=== PATIENT | female | born 1995 | race African-American/Black ===

== ENCOUNTER 2021-06-04 09:39 | Emergency (ER) | payer OTHER ==
[~2021-06-04] VITALS: Ht 162.6 cm; Wt 50.0 kg
[2021-06-04] MEDS ORDERED: KETOROLAC 15MG/ML VIAL IM ONE (10:45)
[2021-06-04 11:20] VITALS: BP 130/83
== END 2021-06-04 11:28 | disposition home or self-care (01) ==
LOC: ER 09:39
DX: R51.9 Headache, unspecified (principal); G89.11 Acute pain due to trauma; Y04.2XXA Assault by strike against or bumped into by another person, initial encounter; Y01.XXXA Assault by pushing from high place, initial encounter; Y93.89 Activity, other specified; Y92.89 Other specified places as the place of occurrence of the external cause
CPT/HCPCS: 81025; 96372; 99283; J1885